=== PATIENT | female | born 1960 | race Caucasian/White ===

== ENCOUNTER 2022-03-22 10:31 | Emergency (ER) | payer OTHER ==
[~2022-03-22] VITALS: Ht 160 cm; Wt 81.6 kg
[2022-03-22] MEDS ORDERED: cloNIDine HCL 0.1 MG TAB PO ONE (10:45)
[2022-03-22 11:14] LABS: Basophils # (auto) 0.1 10 ^3/uL (0-0.2); Basophils % (auto) 0.9 % (0.0-2.0); Eosinophils # (auto) 0.2 10 ^3/uL (0-0.8); Eosinophils % (auto) 2.1 % (0.0-7.0); Hematocrit 39.9 % (36.0-46.0); Hemoglobin 13.6 g/dL (12.2-16.2); Lymphocytes # (auto) 2.6 10 ^3/uL (0.4-5.4); Lymphocytes % (auto) 30.8 % (10.0-50.0); Mean Corpuscular Hemoglobin 29.6 pg (28.0-32.0); Mean Corpuscular Hgb Conc. 34.2 g/dL (32.0-36.0); Mean Corpuscular Volume 86.6 fL (80.0-100.0); Monocytes # (auto) 0.9 10 ^3/uL (0-1.3); Monocytes % (auto) 10.4 % (0.0-12.0); Neutrophils # (auto) 4.8 10 ^3/uL (1.6-8.6); Neutrophils % (auto) 55.8 % (37.0-80.0); Nucleated Red Blood Cells % 0.1 %; Red Cell Distribution Width 14.2 % (11.8-14.3); White Blood Cell 8.6 10^3/uL (4.4-10.8)
[2022-03-22 11:38] LABS: Albumin 3.7 g/dL (3.4-5.0); Calcium 8.9 mg/dL (8.5-10.1); Potassium 3.6 mmol/L (3.5-5.1)
[2022-03-22 11:40] LABS: BUN/Creatinine Ratio 20.6
[2022-03-22 11:43] LABS: Bilirubin, Total 0.3 mg/dL (0.2-1.0); Total Protein 7.4 g/dL (6.4-8.2)
[2022-03-22 12:54] LABS: Urine Bacteria NONE SEEN /hpf (None Seen); Urine Blood Negative /uL (Negative); Urine Mucus FEW (None Seen); Urine Specific Gravity 1.016 (1.001-1.035); Urine WBC <1 /hpf (0 - 5)
[2022-03-22 19:40] VITALS: BP 130/71
== END 2022-03-22 19:55 | disposition short-term general hospital (02) ==
LOC: ER 10:31
DX: I63.9 Cerebral infarction, unspecified (principal); G43.909 Migraine, unspecified, not intractable, without status migrainosus; I10 Essential (primary) hypertension; H11.32 Conjunctival hemorrhage, left eye; R53.1 Weakness; Z88.0 Allergy status to penicillin; Z20.822 Contact with and (suspected) exposure to COVID-19
CPT/HCPCS: 36415; 70450; 80053; 81001; 85025; 93005